=== PATIENT | female | born 1965 | race Two or more races ===

== ENCOUNTER 2024-11-14 02:29 | Emergency (ER) | payer OTHER ==
[~2024-11-14] VITALS: Ht 162.6 cm; Wt 59.0 kg
[~2024-11-14 02:29] MED LIST: cloNIDine HCL 0.1 MG TAB ONE
[2024-11-14 02:47] VITALS: BP 191/109; PULSE 68; RESP 18; O2SAT 96
[2024-11-14] MEDS: cloNIDine HCL 0.1 MG TAB PO ONE (03:06)
[2024-11-14 03:37] LABS: Alanine Aminotransferase 20 U/L (7-40); Albumin 4.6 g/dL (3.2-4.8); Anion Gap 9 (5-15); Aspartate Aminotransferase 28 U/L (13-40); BUN/Creatinine Ratio 25.8 (10.0-20.0); Blood Urea Nitrogen 17 mg/dL (9-23); Carbon Dioxide 26 mmol/L (20-31); Chloride 103 mmol/L (98-107); Lipase 39 U/L (12-53); Potassium 3.5 mmol/L (3.5-5.1); Sodium 138 mmol/L (136-145); Total Protein 7.7 g/dL (5.7-8.2)
[2024-11-14 03:38] LABS: Basophils # (auto) 0.1 10 ^3/uL (0-0.2); Basophils % (auto) 0.6 % (0.0-2.0); Bilirubin, Total 0.4 mg/dL (0.2-1.0); Eosinophils # (auto) 0.1 10 ^3/uL (0-0.8); Eosinophils % (auto) 1.2 % (0.0-7.0); Hematocrit 31.9 % (36.0-46.0); Lymphocytes # (auto) 1.7 10 ^3/uL (0.4-5.4); Lymphocytes % (auto) 19.3 % (10.0-50.0); Mean Corpuscular Hemoglobin 29.7 pg (28.0-32.0); Mean Corpuscular Hgb Conc. 34.5 g/dL (32.0-36.0); Monocytes # (auto) 0.5 10 ^3/uL (0-1.3); Monocytes % (auto) 5.9 % (0.0-12.0); Neutrophils # (auto) 6.5 10 ^3/uL (1.6-8.6); Platelet Count (auto) 102 10^3/uL (140-450); Red Blood Cells 3.71 10^6/uL (4.0-5.20); Red Cell Distribution Width 14.7 % (11.8-14.3); White Blood Cell 8.9 10^3/uL (4.4-10.8)
--- NOTE | 2024-11-14 03:50 | ED.PDOC ---
History of Present Illness HPI Comments 59-year-old female who is brought in by ambulance for complaint of nonradiating, left lower quadrant pain with nausea, today. Per EMS report, patient endorses onset unprovoked onset of symptoms 1.5 hours ago,m while resting in bed. He was noted to have been found with a blood glucose of 114 in addition to being s hypertensive at 191/105. EN route she was given 1 g of Tylenol in addition to 4 mg of Zofran IV, with noted improvement total 10/10 in severity to 3/10. At time of initial assessment, patient reports no recent illness in addition to having significant past medical or surgical history pertinent or relevant information. She denies having any chest pain, hematemesis, hematochezia, diarrhea, constipation, urinary symptoms, or other associated symptoms or modifying factors at this time. Patient has a reported history of breast cancer and kidney stones. Chief Complaint: Abdominal Pain Time Seen by MD: 03:30 Reviewed Notes: Nurses Notes, Circulation Representative Notes, Medications, Allergies Allergies: Coded Allergies: NO KNOWN ALLERGIES (Unverified , 11/14/24) Information Source: Patient, Emergency Med Personnel Mode of Arrival: EMS Severity: Moderate Timing: Hours Duration: Since onset Prehospital treatment: 12 Lead EKG, Shank Pinner, Other (IV 4mg Zofran, 1g tylenol ) Review of Systems: REVIEW OF SYSTEMS: No fever, no chills, or fatigue HEENT: No sore throat, no earache, no congestion, no neck pain. Cardiac: No chest pain. No palpitations. Lungs: No shortness of breath, no cough. GI: Abdominal pain and nausea, no vomiting, no diarrhea, no constipation, : No dysuria, frequency, or urgency. No hematuria. Musculoskeletal: No joint pain , no joint swelling, no extremity edema. Skin: No rash, no itching. Neuro: No headache, no dizziness, no weakness Vital Signs Vital Signs Date Time Temp Pulse Resp B/P (MAP) Pulse Ox O2 Delivery O2 Flow Rate FiO2 11/14/24 03:06 191/109 11/14/24 02:47 97.8 68 18 96 Physical Exam General: Awake, alert and oriented. No acute distress. Skin: Skin in warm, dry and intact. Appropriate color for ethnicity. HEENT: The head is normocephalic and atraumatic. Conjunctivae are clear without exudates or hemorrhage. Sclera is non-icteric. EOM are intact. No signs of nystagmus. Eyelids are normal in appearance without swelling or lesions. Oral mucosa is pink and moist Neck: The neck is supple with normal range of motion. No JVD. Cardiac: Heart rate and rhythm are normal. No murmurs, gallops, or rubs are auscultated. Respiratory: No signs of respiratory distress. Lung sounds are clear in all lobes bilaterally without rales, ronchi, or wheezes. Abdominal: Left lower quadrant abdominal tenderness. Otherwise abdomen is soft and without distention. Bowel sounds are present and normoactive in all four quadrants. Extremities: Upper and lower extremities are atraumatic in appearance without deformity or edema. Neurological: The patient is awake, alert and oriented to person, place, and time with normal speech. Speech is clear. There is no facial asymmetry. Psychiatric: Appropriate mood and affect. Good judgement and insight. No visual or auditory hallucinations. Past Medical History PAST MEDICAL HISTORY: Cancer (Breast cancer), Kidney Stones Surgical History: Denies all surgeries HAND THERMAL CUTTER History: Denies all HAND THERMAL CUTTER Hx Family History Family History: Unknown Social History Smoker: Non-Smoker Alcohol: Denies ETOH Use Drugs: Denies Drug Use Lives In: Home Was a procedure done? Was a procedure done?: No Differential Dx Considerations may include: Differential diagnoses considered include: Abdominal aortic aneurysm, RI, esophageal rupture, intestinal obstruction, mesenteric ischemia, perforated viscus or solid organ rupture, CHF with hepatomegaly, pneumonia, abscess, appendicitis, biliary disease, diverticulitis, gastritis, gastroenteritis, hepatitis, hernia, inflammatory bowel disease, pancreatitis, peptic ulcer disease, urinary tract infection, ureteral colic, constipation, GERD, irritable syndrome, abdominal wall pain, nonspecific abdominal pain, herpes zoster. [ ]Also ruptured ectopic , ovarian torsion/cyst, tubo-ovarian abscess, PID, endometriosis, mittleschmerz. X-Ray, Labs, Meds, VS Vital Signs Date Time Temp Pulse Resp B/P (MAP) Pulse Ox O2 Delivery O2 Flow Rate FiO2 11/14/24 03:06 191/109 11/14/24 02:47 97.8 68 18 191/109 (136) 96 11/14/24 02:34 81 Lab Test 11/14/24 04:37 11/14/24 02:58 Range/Units Troponin I High Sensitivity 7 8 </=34 ng/L White Blood Count 8.9 4.4-10.8 10^3/uL Red Blood Count 3.71 L 4.0-5.20 10^6/uL Hemoglobin 11.0 L 12.2-16.2 g/dL Hematocrit 31.9 L 36.0-46.0 % Mean Corpuscular Volume 86.0 80.0-100.0 fL Mean Corpuscular Hemoglobin 29.7 28.0-32.0 pg Mean Corpuscular Hemoglobin Concent 34.5 32.0-36.0 g/dL Red Cell Distribution Width 14.7 H 11.8-14.3 % Platelet Count 102 L 140-450 10^3/uL Mean Platelet Volume 7.6 6.9-10.8 fL Neutrophils (%) (Auto) 73.0 37.0-80.0 % Lymphocytes (%) (Auto) 19.3 10.0-50.0 % Monocytes (%) (Auto) 5.9 0.0-12.0 % Eosinophils (%) (Auto) 1.2 0.0-7.0 % Basophils (%) (Auto) 0.6 0.0-2.0 % Neutrophils # (Auto) 6.5 1.6-8.6 10 ^3/uL Lymphocytes # (Auto) 1.7 0.4-5.4 10 ^3/uL Monocytes # (Auto) 0.5 0-1.3 10 ^3/uL Eosinophils # (Auto) 0.1 0-0.8 10 ^3/uL Basophils # (Auto) 0.1 0-0.2 10 ^3/uL Nucleated Red Blood Cells 0.0 % Sodium Level 138 136-145 mmol/L Potassium Level 3.5 3.5-5.1 mmol/L Chloride Level 103 98-107 mmol/L Carbon Dioxide Level 26 20-31 mmol/L Anion Gap 9 5-15 Blood Urea Nitrogen 17 9-23 mg/dL Creatinine 0.66 0.550-1.02 mg/dL Glomerular Filtration Rate Calc 100 >90 mL/min BUN/Creatinine Ratio 25.8 H 10.0-20.0 Serum Glucose 108 H 74-106 mg/dL Calcium Level 10.0 8.7-10.4 mg/dL Total Bilirubin 0.4 0.2-1.0 mg/dL Aspartate Amino Transferase (AST) 28 13-40 U/L Alanine Aminotransferase (ALT) 20 7-40 U/L Alkaline Phosphatase 136 H 46-116 U/L B-Type Natriuretic Peptide 58.17 0-100 pg/mL Total Protein 7.7 5.7-8.2 g/dL Albumin 4.6 3.2-4.8 g/dL Lipase 36 12-53 U/L Current Medications Medications (Trade) Dose Ordered Sig/Angel Route Start Time Stop Time Status Last Admin Clonidine HCl (Catapres Tablet) 0.1 mg ONCE ONCE PO 11/14/24 03:00 11/14/24 03:01 DC 11/14/24 03:06 Time of 1ST Reevaluation: 04:00 Reevaluation 1ST: Unchanged Patient Education/Counseling: Treatment, Need For Follow Up Family Education/Counseling: No Family Present Departure 1 Departure Time of Disposition: 05:19 Impression: Primary Impression: Hydronephrosis Additional Impressions: Left nephrolithiasis Abdominal pain Disposition: ADMITTED INPATIENT Condition: Stable Comments 59-year-old female who presents to the emergency department with sudden onset left lower quadrant pain. CT abdomen and pelvis showed 1. Left hydroureteronephrosis due to 5 mm obstructive calculus at the left ureterovesical junction. Additional bilateral nonobstructive intrarenal calculi. 2. Lytic lesions throughout the bony pelvis and lumbar spine which are concerning for metastatic disease. Extensive evaluation was performed in attempt to identify or rule out: (See differential diagnosis section) The following tests were ordered, and results were reviewed by me: (See diagnostic results section) The following test were independently interpreted by me: EKG I reviewed and agreed with the following test results read by other providers: N /A I reviewed the following notes from the pt's past medical encounters: N/A Additional information was gathered from interviewing the following independent historians: EMS Discussion of management or test interpretation with external physician/other q ualified health sub acute care nurse: N/A Decision regarding hospitalization or escalation of hospital level of care: Risks and benefits of admission for further treatment of patient's condition was considered however due to patient's stable condition patient will be discharged to follow up closely or return to care for worsening of condition or inability to follow up. Critical Care Note Critical Care Time?: No Stability Stability form required: No Heart Score Heart Score: Heart Score Response (Comments) Value History N/A 0 EKG N/A 0 Age N/A 0 Risk Factors N/A 0 Troponin N/A 0 Total 0 I personally scribed for JOSELO LOPEZ MD ([email or web address]) on 11/14/24 at 03:49. Electronically submitted by Andrwe Zamarripa ([email or web address]). JOSELO LOPEZ MD Nov 14, 2024 03:49
[2024-11-14 03:51] LABS: Alkaline Phosphatase 136 U/L (46-116); Glucose 108 mg/dL (74-106)
[2024-11-14] MEDS: IOHEXOL 300 MG/ML 100ML BOTTLE IJ ONE (04:29)
--- NOTE | 2024-11-14 05:03 | DVH ---
Exam: CT CT AB PEL WITH IV CON ONLY History: LLQ abdominal pain Comparison Study: None available at time of dictation. Technique: Multidetector spiral CT of the abdomen was performed from lung bases to pubic symphysis. A xial imaging was performed with intravenous contrast following the uneventful administration of 100 m l Omnipaque 300. Coronal and sagittal multiplanar reformats were obtained from the axial data set by the technologist. Radiation Dose : 1. Abdomen/Pelvis: CTDIvol 9.26 mGy, DLP 458.32 mGy*cm. Findings: Lung Bases: Lung bases are clear. Visualized portions of the heart and pericardium are unremarkable. Liver: The liver is normal in size. No focal lesions. Gallbladder and Biliary Tree: The gallbladder is unremarkable. No intrahepatic or extrahepatic bilia ry ductal dilatation. Spleen: Unremarkable Pancreas: The pancreas enhances normally and there are no focal lesions. The main pancreatic duct is not dilated Adrenal Glands: Unremarkable Kidneys: Kidneys enhance symmetrically. Mild left hydroureteronephrosis due to 5 mm calculus at the l eft ureterovesical junction. Bilateral nonobstructive intrarenal calculi measuring up to 8 mm in the right kidney and 6 mm in the left kidney. GI tract: The stomach is grossly normal in appearance. No evidence of small bowel wall thickening or abnormal dilatation to suggest bowel obstruction. The colon is unremarkable. The appendix is not visu alized, however no inflammatory changes in the right lower quadrant to suggest acute appendicitis. Peritoneum/mesentery/retroperitoneum. No evidence of free intraperitoneal air. No ascites. No evidenc e of suspicious lymphadenopathy. Abdominal Wall: Unremarkable. Vasculature: Abdominal aorta and main branches are unremarkable. Normal vascular enhancement. Urinary Bladder: Grossly unremarkable for degree of distention. Pelvic Organs: Unremarkable Musculoskeletal: Degenerative changes in the lumbar spine. Lytic lesions in the bony pelvis, and the L2, L3, L4 and L5 vertebral bodies as well as the sacrum suspicious for metastatic disease. L5 mild height loss. bilateral hip replacements streak artifact that limits evaluation IMPRESSION: 1. Left hydroureteronephrosis due to 5 mm obstructive calculus at the left ureterovesical junction. A dditional bilateral nonobstructive intrarenal calculi. 2. Lytic lesions throughout the bony pelvis and lumbar spine which are concerning for metastatic dise ase.
[2024-11-14] MEDS ORDERED: SODIUM CHLORIDE 0.9% 1,000 ML IV ONE (05:45)
[2024-11-14] MEDS ORDERED: TAMSULOSIN HYDROCHLORIDE 0.4 MG CAP PO ONE (05:45)
--- NOTE | 2024-11-14 07:08 | ECG ---
[facility] Test Date: 2024-11-14 Test Time: 02:34:55 Pat Name: CRISTINA JACOBS Department: ER Room: Gender: F Crisis Worker: MICHAEL : 1965 Requested By: JOSELO LOPEZ Order Number: [id number] Reading MD: Measurements Intervals [place] Rate: 81 P: 70 RI: 190 QRS: -66 QRSD: 104 T: -30 QT: 429 QTc: 498 Interpretive Statements Sinus rhythm Left anterior fascicular block Probable left ventricular hypertrophy Anterior Q waves, possibly due to LVH Nonspecific T abnormalities, inferior leads Please click the below link to view image of tracing.
== END 2024-11-14 07:19 | disposition left against medical advice (07) ==
LOC: ER 02:29 → EDBD 02:29 → ER 07:19
DX: N13.30 Unspecified hydronephrosis (principal); N20.0 Calculus of kidney; Z85.3 Personal history of malignant neoplasm of breast; Z87.442 Personal history of urinary calculi; Z88.6 Allergy status to analgesic agent; Z88.8 Allergy status to other drugs, medicaments and biological substances
CPT/HCPCS: 36415; 74177; 80053; 83690; 83880; 84484; 85025; 93005; 99285; Q9967